=== PATIENT | male | born 1990 | race Caucasian/White ===

== ENCOUNTER 2017-04-06 18:23 | Emergency (ER) | payer MEDICAID, OTHER ==
[~2017-04-06] VITALS: Ht 172.7 cm; Wt 81.6 kg
[~2017-04-06 18:23] MED LIST: ALBUTEROL SULF8.5 GM INH; AMOXICILLIN500 MG ORAL; BENADRYL25 MG ORAL; BENZTROPINE MESY1 MG PO; CELEXA20 MG ORAL; CLOZARIL100 MG ORAL; IBUPROFEN600 MG ORAL; LEVAQUIN500 MG ORAL; LORAZEPAM0.5 MG ORAL; NORCO 5-325 TA1 EACH ORAL; PREDNISONE20 MG ORAL; THERAFLU COLD1 EAC4 PO; TRAMADOL HCL50 MG ORAL; ZYPREXA10 MG ORAL
[2017-04-06] MEDS ORDERED: Norco 5mg/325mg tab ORAL ONE ×2 (19:00→19:30)
[2017-04-06] MEDS ORDERED: IBUPROFEN600 MG ORAL (20:01)
[2017-04-06 20:08] VITALS: BP 124/86
--- NOTE | 2017-04-06 21:42 | Emergency Room Report ---
History of Present Illness General Chief Complaint: Lower Extremity Injury Source: Patient Present Illness HPI The patient is a to a 27-year-old male presenting for right ankle pain. He states that he injured his ankle yesterday. He states that he rolled the ankle. He denies falling or other injury. Pain is 8/10 dull ache and does not radiate. He states that he had a fracture of the ankle 2 years prior. He denies any other symptoms Allergies: Coded Allergies: No Known Allergies (Unverified , 11/05/14) Patient History Past Medical History: see triage record Pertinent Family History: none Reviewed Nursing Documentation: PMH: Agreed, PSxH: Agreed Nursing Documentation-PMH Hx Cardiac Problems: No Hx Asthma: Yes Hx Cancer: No Hx Gastrointestinal Problems: No History Of Psychiatric Problem: Yes - schizo Hx Neurological Problems: No Review of Systems All Other Systems: negative except mentioned in HPI Physical Exam Vital Signs Date Time Temp Pulse Resp B/P (MAP) Pulse Ox O2 Delivery O2 Flow Rate FiO2 04/06/17 18:46 97.3 78 16 124/86 98 Room Air Sp02 EP Interpretation: reviewed, normal General Appearance: no apparent distress, alert, GCS 15, non-toxic Head: normocephalic, atraumatic Eyes: bilateral eye normal inspection, bilateral eye PERRL Musculoskeletal: no calf tenderness, decreased range of motion, swelling, tender - TTP over the R lateral ankle Neurologic: alert, oriented x3, responsive, motor strength/tone normal, sensory intact, speech normal Psychiatric: judgement/insight normal, memory normal, mood/affect normal, no suicidal/homicidal ideation Skin: normal color, no rash, warm/dry, well hydrated Procedures Splinting Splinting : Consent: Verbal Location: R ankle Pre-Made Type: KENROY wrap Pre-Proc Neuro Vasc Exam: normal Post-Proc Neuro Vasc Exam: normal Patient Tolerated: Well Complications: None Medical Decision Making PA Attestation Dr. Burgess is my supervising physician. Patient management was discussed with my supervising physician Diagnostic Impression: Primary Impression: Ankle sprain Qualified Codes: S93.401A - Sprain of unspecified ligament of right ankle, initial encounter ER Course The patient is a to a 27-year-old male presenting for right ankle pain Ddx considered include but not limited to sprain/strain, fracture, contusion Physical exam: Vitals within normal limits. No apparent distress R ankle: There is tenderness to palpation and edema over the R lateral malleolus. Limited active range of motion. Sensation intact to light touch. X-ray of the R ankle is unremarkable R ankle placed in KENROY wrap and the patient is provided crutches. ER precautions are given. Patient given prescription for Motrin and will follow up with primary care physician. Last Vital Signs Date Time Temp Pulse Resp B/P (MAP) Pulse Ox O2 Delivery O2 Flow Rate FiO2 04/06/17 20:08 97.3 16 124/86 98 Room Air 04/06/17 18:46 78 Status: improved Disposition: HOME, SELF-CARE Condition: Improved Scripts Ibuprofen* (MOTRIN*) 600 Mg Tablet 600 MG ORAL Q8H Y for For Pain, #30 TAB 0 Refills Prov: MUKESH PACK 04/06/17 Referrals: [facility],REFERRING (PCP) Patient Instructions: Ankle Sprain Additional Instructions: I discussed my findings with the patient. All questions and concerns have been answered. Treatment and medication compliance have been addressed. I advised the patient that they need to follow up with PMD in 3-5 days. Return to ED if pain remains or worsens, numbness or tingling occurs, new rash is noticed, fever is noticed, or if needed for any reason. Patient verbalized understanding of discharge instructions. MUKESH PACK Apr 06, 2017 21:42
--- NOTE | 2017-04-07 11:26 | Diagnostic Imaging Report ---
Indication: PAIN Technique: 3 views of the right ankle Comparison: none Findings: No acute fractures. No dislocations. There is soft tissue swelling over the lateral malleolus. Impression: Evidence of lateral soft tissue injury. No acute bony trauma
== END 2017-04-06 20:10 | disposition home or self-care (01) ==
LOC: EMR 18:50
DX: S93.401A Sprain of unspecified ligament of right ankle, initial encounter (principal); X50.1XXA Overexertion from prolonged static or awkward postures, initial encounter; Y92.89 Other specified places as the place of occurrence of the external cause; J45.909 Unspecified asthma, uncomplicated; F20.9 Schizophrenia, unspecified
CPT/HCPCS: 99284

== ENCOUNTER 2018-04-12 05:58 | Emergency (ER) | payer OTHER ==
[~2018-04-12] VITALS: Ht 175.3 cm; Wt 90.7 kg
[2018-04-12 06:01] VITALS: BP 135/90
[2018-04-12] MEDS ORDERED: NKM (06:03)
--- NOTE | 2018-04-12 06:38 | Emergency Room Report ---
History of Present Illness General Chief Complaint: Vomiting Source: Patient Present Illness HPI Is a 28-year-old male who said he has no past medical history. In previous visit, he has a history of methamphetamine abuse. He called 911 for chief complaint of vomiting 2. Started last night. No fever chills. No diarrhea. No pain. Denies trauma. Vomiting is nonbloody nonbilious. Denies any other complaint. Allergies: Coded Allergies: No Known Allergies (Unverified , 11/05/14) Patient History Past Medical History: see triage record, old chart reviewed Past Surgical History: other Pertinent Family History: none Social History: Reports: drug use Immunizations: other Reviewed Nursing Documentation: PMH: Agreed; PSxH: Agreed Nursing Documentation-PMH Hx Cardiac Problems: No Hx Asthma: Yes Hx Cancer: No Hx Gastrointestinal Problems: No Hx Neurological Problems: No Review of Systems Eye: Denies: eye pain, blurred vision ENT: Denies: ear pain, nose congestion, throat swelling Respiratory: Denies: cough, shortness of breath Cardiovascular: Denies: chest pain, palpitations Gastrointestinal: Reports: nausea, vomiting; Denies: abdominal pain, diarrhea Musculoskeletal: Denies: back pain, joint pain Skin: Denies: rash Neurological: Denies: headache, numbness Endocrine: Denies: increased thirst, increased urine Hematologic/Lymphatic: Denies: easy bruising All Other Systems: negative except mentioned in HPI Physical Exam Vital Signs Date Time Temp Pulse Resp B/P (MAP) Pulse Ox O2 Delivery O2 Flow Rate FiO2 04/12/18 05:58 98.2 95 16 135/90 95 Room Air vitals normal Sp02 EP Interpretation: reviewed, normal General Appearance: well appearing, no apparent distress, alert Head: normocephalic, atraumatic Eyes: bilateral eye PERRL, bilateral eye EOMI ENT: hearing grossly normal, normal pharynx Neck: full range of motion, supple, no meningismus Respiratory: chest non-tender, lungs clear, normal breath sounds Cardiovascular #1: regular rate, rhythm, no murmur Gastrointestinal: normal bowel sounds, non tender, no mass, no organomegaly, no bruit, non-distended Musculoskeletal: back normal, gait/station normal, normal range of motion Psychiatric: mood/affect normal Skin: warm/dry Medical Decision Making Diagnostic Impression: Primary Impression: Vomiting Qualified Codes: R11.2 - Nausea with vomiting, unspecified Additional Impression: Methamphetamine abuse ER Course Patient with a history of methamphetamine abuse with vomiting. He has no vomiting here. He is tolerating by mouth here. Labs unremarkable. We'll discharge home. Last Vital Signs Date Time Temp Pulse Resp B/P (MAP) Pulse Ox O2 Delivery O2 Flow Rate FiO2 04/12/18 05:58 98.2 95 16 135/90 95 Room Air Status: improved Disposition: HOME, SELF-CARE Condition: Stable Patient Instructions: Nausea and Vomiting, Adult Additional Instructions: Stop using drugs. Follow-up with your doctor in 7 days. Return if worse. Mendoza Sanchez MD Apr 12, 2018 06:38
[2018-04-12 06:48] VITALS: BP 132/91
== END 2018-04-12 06:55 | disposition home or self-care (01) ==
LOC: EDBD 05:58 → EMR 06:50
DX: R11.2 Nausea with vomiting, unspecified (principal); F15.10 Other stimulant abuse, uncomplicated; J45.909 Unspecified asthma, uncomplicated
CPT/HCPCS: 99283